=== PATIENT | female | born 1980 | race Caucasian/White ===

== ENCOUNTER 2024-01-10 10:23 | Day surgery (SDC) | payer BC ==
[2024-01-10] MEDS ORDERED: Sodium Chloride 0.9% 10 ML Syringe FLUSH PRN (10:30)
[2024-01-10] MEDS ORDERED: Midazolam 1 MG/ML 2 ML SDV ONE (10:43)
[2024-01-10] MEDS ORDERED: Propofol 200 MG/20 ML SDV ONE (10:43)
[2024-01-10] MEDS: Lactated Ringers 1,000 ML IV SCH (10:55)
== END 2024-01-10 13:10 | disposition home or self-care (01) ==
LOC: KA.SDS 10:23
PROVIDERS: ATTEND Family Medicine
DX: Z12.11 Encounter for screening for malignant neoplasm of colon (principal); R19.5 Other fecal abnormalities; K21.9 Gastro-esophageal reflux disease without esophagitis
CPT/HCPCS: 45378; 81025; J2250; J2704; J7120; J3490